=== PATIENT | male | born 1975 | race Caucasian/White ===

== ENCOUNTER 2021-06-11 19:41 | Emergency (ER) | payer BC ==
[2021-06-11 20:17] LABS: Bilirubin Negative (Negative); Blood, Urine Negative (Negative); Clarity Clear (Clear); Glucose, Urine (Dipstick) Negative (Negative); Ketone, Urine Negative (Negative); Leukocyte Negative (Negative); Nitrite Negative (Negative); Protein, Urine (Dipstick) Negative (Neg-Trace); Urobilinogen 0.2 mg/dL (Less than 2); pH, Urine 6.5 (5.0-9.0)
[2021-06-14 21:26] LABS: Chlam.trachomatis by PCR,Urine Not Detected (NotDetected)
== END 2021-06-11 20:37 | disposition home or self-care (01) ==
LOC: BURERS 19:41
DX: R30.0 Dysuria (principal); I10 Essential (primary) hypertension; Z79.899 Other long term (current) drug therapy
CPT/HCPCS: 81003; 87491; 87591; 99283

== ENCOUNTER 2025-02-22 21:07 | Emergency (ER) | payer BC, SELFPAY ==
[2025-02-22] MEDS ORDERED: Lidocaine 1% PF 5 ML VIAL ONE ×2 (21:27→21:38)
[2025-02-22] MEDS ORDERED: Ibuprofen 800 MG TAB ONE (21:55)
[2025-02-22] MEDS ORDERED: Boostrix 0.5 ML (Tdap) VIAL (>/=7 yrs of age) ONE (22:01)
== END 2025-02-22 22:41 | disposition home or self-care (01) ==
LOC: BURERS 21:07
DX: S60.452A Superficial foreign body of right middle finger, initial encounter (principal); I10 Essential (primary) hypertension; W61.32XA Struck by chicken, initial encounter; Y92.009 Unspecified place in unspecified non-institutional (private) residence as the place of occurrence of the external cause; Z23 Encounter for immunization
CPT/HCPCS: 64450; 90471; 90715